=== PATIENT | female | born 1935 | race Caucasian/White ===

== ENCOUNTER 2023-12-03 16:34 | Emergency (ER) | payer OTHER, SELFPAY ==
[2023-12-03] VITALS (9 sets, daily range): BP systolic 106–140; BP diastolic 44–66; PULSE 66–74; BMI 22.4
[2023-12-03 16:51] LABS: % Basophils 0.4 % (0-2); % Eosinophils 1.3 % (0-6); % Immature Granulocytes 0.3 % (0-0.5); % Lymphocytes 28.2 % (20.5-51.1); % Monocytes 9.5 % (1.7-9.3); % Neutrophils 60.3 % (42.2-75.2); Absolute Eosinophils 0.1 10^3/uL (0-0.7); Absolute Monocytes 0.7 10^3/uL (0.1-0.6); Absolute Neutrophils 4.3 10^3/uL (1.4-6.5); Hematocrit 33.5 % (37.0-47.0); Mean Corp Hgb Conc. 32.8 g/dL (33.0-37.0); Mean Corpuscular Hgb 30.8 pg (27.0-31.0); Mean Corpuscular Volume 93.8 fL (81.0-99.0); Mean Platelet Volume 11.6 fL (7.4-10.4); Nucleated Red Blood Cells % 0 %; Platelet Count 203 10^3/uL (130-400); Red Blood Cell Count 3.57 10^6/uL (4.20-5.40); Red Cell Dist. Width 12.5 % (11.5-14.5); White Blood Cell Count 7.1 10^3/uL (4.8-10.8)
[2023-12-03 17:17] LABS: ALT (SGPT) 11 U/L (0-35); AST (SGOT) 26 U/L (14-36); Albumin 4.1 g/dl (3.5-5.0); Alkaline Phosphatase 67 U/L (38-126); Blood Urea Nitrogen 31 mg/dl (7-17); Calcium 9.7 mg/dl (8.4-10.2); Carbon Dioxide 34 mmol/L (22-30); Chloride 99 mmol/L (98-107); Estimated Creatinine Clearance 42 ml/min; Glucose 110 mg/dl (70-99); Potassium 3.6 mmol/L (3.5-5.1); Sodium 137 mmol/L (135-145); Total Bilirubin 0.6 mg/dl (0.2-1.3); eGFR > 60.00
[2023-12-03 17:30] LABS: Troponin I < 0.012 ng/ml
[2023-12-03 18:43] LABS: Urine Albumin Negative (Neg - Trace); Urine Bilirubin Negative (Negative); Urine Character Clear (Clear); Urine Color Yellow; Urine Glucose Negative (Negative); Urine Ketone Negative (Negative); Urine Leukocyte Negative (Negative); Urine Nitrite Negative (Negative); Urine Occult Blood Negative (Negative); Urine Specific Gravity 1.005 (<1.030); Urine Urobilinogen Negative (Neg - 1+)
--- NOTE | 2023-12-03 22:39 | ED.GENMED ---
History of Present Illness
General
Chief Complaint: Fainting Sensation
Source: patient
Exam Limitations: none
Time Seen by Provider: 12/03/23 17:29
Nursing documentation reviewed up to this point in time: agreed with
Travel History
Have you had any contact with someone who has COVID-19?: No
Do you have any symptoms of coronavirus? Fever > 100 degrees, chills, cough, shortness of breath, sore throat, loss of taste or smell, muscle aches, or headache?: No
History of Present Illness
History of Present Illness:
Patient states she was grocery shopping. Had sudden onset of dizziness while checking out. Assisted to floor by another customer. Stes symptoms resolved quickly. Reports having an episode of diarrhea earlier. States she took 3 immodium and 25mg
of meclazine this AM prior to leaving her home. SHe has an infrequent history of vertigo. Brought to ED via EMS for eval. Denies fever/chills, CP SOB. No abdominal pain n/v. Eating and drinking normally. No other complaints.
Past History
Past History
ED Past Medical History: GERD, HTN and Other (Vertigo, osteoporosis)
ED Past Surgical History: Appendectomy and
Patient has exhibited threatening behavior?: No
PSI?: No
Social History
Tobacco: Former smoker (quit in 1980s)
Alcohol: None
Drug: None
Personal:
Living: with family
Employment: Retired (secretary administrative assistant)
Family History
Family History: Other (n/c)
Review of Systems
Review of Systems
Allergies reviewed?: Yes
All Other Systems: ROS reviewed and negative except as documented in HPI and ROS
Constitutional: Reports no symptoms
EENT: Reports no symptoms
Respiratory: Reports no symptoms
Cardiac: Reports no symptoms
ABD/GI: Reports diarrhea (1 episode this AM)
: Reports no symptoms
Musculoskeletal: Reports no symptoms
Skin: Reports no symptoms
Neurological: Reports dizzy
Psychiatric: Reports no symptoms
Phy Exam
General Physical Exam
General Presentation: well appearing and no apparent distress
General age: appears stated age
General Skin: warm and dry
General Habitus: normal
General Mental: alert
Eye Exam
Eye Exam: PERRL, EOMI and conjunctiva normal
Cardiovascular Exam
Cardiovascular Exam: regular rate/rhythm and no edema
Pulmonary Exam
Pulmonary Exam: lungs clear, no respiratory distress and chest non tender
Gastrointestinal Exam
Gastrointestinal Exam: normal bowel sounds, non tender, soft, no organomegaly, no pulsatile mass and non distended
NIH Stroke Score
Level of Consciousness: 0 - Alert
LOC questions: 0-Answers both correctly
LOC Commands: 0-Performs both correctly
Best Gaze: 0-Normal
Visual Nichols: 0=Normal, no visual loss
Facial palsy: 0=Normal, symmetrical
Motor - Right Arm: 0=No drift 10 seconds
Motor - Left Arm: 0=No drift 10 seconds
Motor - Right Le-No drift 5 seconds
Motor - Left Le-No drift 5 seconds
Limb Ataxia: 0-Absent
Sensation: 0-Normal
Best Language: 0-No aphasia
Dysarthria: 0-Normal
Extinction and Inattention: 0-No abnormality
Total Score:: 0
Musculoskeletal Exam
Musculoskeletal Exam: full ROM and neuro vasc intact
Skin Exam
Skin Exam: normal color, warm/dry and no rash
Psychiatric Exam
Psychiatric Exam: normal mood/affect
Course
Orders/Labs/Results
Orders:
Orders
12/03/23 16:41
Electrocardiogram (*1) Urgent
Reason for Study: Syncope
EKG- Treatment ONCE
12/03/23 16:42
Complete Blood Count/With Diff Urgent
Comprehensive Metabolic Panel Urgent
Troponin I Urgent
12/03/23 17:44
CT Head W/o Iv Contrast Urgent
Comment:
Reason For Exam: near syncope
12/03/23 17:54
Urinalysis Reflex To Culture Urgent
Date Specimen was Collected: 12/03/23
Time Specimen was Collected: 17:53
12/03/23 18:58
Orthostatic VS- Treatment ONCE
Abnormal Lab Results
12/03/23
16:42
RBC 3.57 L 10^6/uL
(4.20-5.40)
Hgb 11.0 L g/dL
(12.0-16.0)
Hct 33.5 L %
(37.0-47.0)
MCHC 32.8 L g/dL
(33.0-37.0)
MPV 11.6 H fL
(7.4-10.4)
Absolute Monos (auto) 0.7 H 10^3/uL
(0.1-0.6)
Monocytes % 9.5 H %
(1.7-9.3)
Carbon Dioxide 34 H mmol/L
(22-30)
BUN 31 H mg/dl
(7-17)
Glucose 110 H mg/dl
(70-99)
12/03/23 16:42
12/03/23 16:42
Vital Signs
Initial and Last Documented VS:
Initial Vital Signs
BP
133/62
12/03/23 16:35
Last Documented Vital Signs
Temp Pulse Resp BP Pulse Ox
98.4 F 69 15 120/64 98
12/03/23 16:37 12/03/23 19:56 12/03/23 19:56 12/03/23 19:56 12/03/23 19:54
*Radiology
Radiology exam reviewed: radiology read reviewed
*Pulse Oximetry
Patient hypoxic: no
*Critical Care Note
Total Time (30-74mins, 75-104mins- exclusive of procedures): Not Applicable
Update Note
Update Note:
Patient remains asymptomatic in dept. No further episodes of dizziness. SHe is discharged home and will follow up with PCP in AM. Given instructions on s/s to return to ED and she is agreeable to plan.
ED Attending Note
-
Portions of this chart may have been created with voice recognition software.� Occasional wrong word or��sound alike� substitutions may have occurred due to the inherent limitations of voice recognition software.
Discharge Plan
Departure
Patient Disposition: Home (Routine Discharge)
Date of Disposition: 12/03/23
Time of Disposition: 20:28
Patient with high blood pressure during this ER visit?: No
Condition: Good
Covid-19: Not Applicable
Discharge Problem:
Dizziness
Instructions: Dizziness, Adult ED
Prescriptions:
No Action
Caltrate-D3 Plus Minerals 1 EACH tablet
1 ea PO BID
meclizine 25 MG tablet
25 mg PO Q8HPRN PRN (Reason: vertigo)
bismuth subsalicylate [[place] Bismuth] 1 TABLET tablet,chewable
1 tab PO Q4HPRN PRN (Reason: indigestion)
nadolol 80 mg tablet
80 mg PO DAILY
losartan-hydrochlorothiazide 50-12.5 mg tablet
1 tab PO BID
polyethylene glycol 3350 17 GRAMS powder in packet
17 grams PO DAILYPRN PRN (Reason: constipation)
acetaminophen 325 mg Tablet
650 mg PO Q6H Qty: 20 0RF
tramadol 50 mg Tablet
50 mg PO Q6HPRN PRN (Reason: moderate pain) Qty: 10 0RF
docusate sodium 100 mg Capsule
100 mg PO BID Qty: 0 0RF
sennosides [Senna Laxative] 8.6 mg Tablet
17.2 mg PO BID Qty: 0 0RF
Referrals:
Andreea Barfield CRNP [Family Provider] - Tomorrow
Interventions
Interventions:
*Risk Screen - Suicide Last Done: 12/03/23 16:37
*General Assessment Last Done: 12/03/23 16:37
*Neglect/Abuse Screening Last Done: 12/03/23 16:37
*ED COVID-19 Vaccine History Last Done: 12/03/23 16:37
*Nursing Disposition Last Done: 12/03/23 20:41
ED- Cardiac Assessment Last Done: 12/03/23 17:00
ED- Neurological Assessment Last Done: 12/03/23 17:00
Discharge Date and Time
Discharge Date/Time: 12/03/23 20:50
== END 2023-12-03 20:50 | disposition home or self-care (01) ==
LOC: EMR 16:34
PROVIDERS: Nurse Practitioner; EMERGENCY PHYSICIAN Emergency Medicine; FAMILY PHYSICIAN Nurse Practitioner Adult Health
DX: R42 Dizziness and giddiness (principal); Z87.891 Personal history of nicotine dependence
CPT/HCPCS: 99285; 70450; 80053; 81003; 84484; 85025; 93005

== ENCOUNTER → 2024-03-01 15:54 | Outpatient (REF) | payer OTHER, SELFPAY | LOC: HWRAD 15:54 | PROVIDERS: ATTENDING PHYSICIAN Nurse Practitioner Adult Health | DX: M25.562 Pain in left knee (principal) | CPT/HCPCS: 73564 ==

== ENCOUNTER 2025-06-17 06:34 | Inpatient (IN) | payer OTHER, SELFPAY ==
[2025-06-17] VITALS (8 sets, daily range): BP systolic 111–163; BP diastolic 46–78; BMI 22.3; BMI 21.3
[2025-06-17 01:58] LABS: Hematocrit 37.5 % (37.0-47.0); Hemoglobin 11.8 g/dL (12.0-16.0); Mean Corp Hgb Conc. 31.5 g/dL (33.0-37.0); Mean Corpuscular Volume 95.9 fL (81.0-99.0); Nucleated Red Blood Cells % 0 %; Platelet Count 228 10^3/uL (130-400); Red Cell Dist. Width 12.2 % (11.5-14.5)
[2025-06-17 02:12] LABS: ALT (SGPT) < 10 U/L (0-35); AST (SGOT) 22 U/L (14-36); Albumin 4.5 g/dl (3.5-5.0); Alkaline Phosphatase 61 U/L (38-126); Blood Urea Nitrogen 30 mg/dl (7-17); Calcium 10.7 mg/dl (8.4-10.2); Carbon Dioxide 33 mmol/L (22-30); Chloride 99 mmol/L (98-107); Glucose 116 mg/dl (70-99); Lipase 88 U/L (23-300); Potassium 3.8 mmol/L (3.5-5.1); Sodium 140 mmol/L (135-145); Total Protein 7.9 g/dl (6.3-8.2); eGFR > 60.00
--- NOTE | 2025-06-17 04:01 | ED.GENMED ---
History of Present Illness
General
Chief Complaint: Bowel Problem
Source: patient
Exam Limitations: none
Time Seen by Provider: 06/17/25 04:00
Nursing documentation reviewed up to this point in time: agreed with
History of Present Illness
History of Present Illness:
Note:
CHIEF COMPLAINT(S)
Abdominal pain and constipation.
HISTORY OF PRESENT ILLNESS
The patient is an 89-year-old female with a history of bowel obstruction, presenting with abdominal pain and constipation. She describes the pain as initially severe on arrival but notes it has since reduced in intensity. The patient denies vomiting
but reports occasional nausea. She has not experienced urinary symptoms like pain during urination and denies recent fevers. The patient has a history of occasional bowel obstructions but has not previously sought emergency care specifically for
constipation, such as requiring an enema. She stated not taking Miralax regularly to manage constipation and expressed uncertainty about its use. Abdominal surgery was mentioned, but specifics were not detailed. The patient reports a light but
successful intake of food today. She denies chest pain, shortness of breath.
PAST MEDICAL AND SURGICAL HISTORY
- History of bowel obstruction.
- Prior abdominal surgeries (specifics not detailed).
PHYSICAL EXAM
- Nursing notes reviewed and vital signs reviewed.
General: Patient is well appearing and in no acute distress; non-toxic
Skin: Warm and dry, no rashes or lesions
Head: Normocephalic, atraumatic
Eyes: Sclera non-icteric. EOMs intact.
Cardiac: Regular rate and rhythm, no murmurs
Peripheral Vascular: No lower ext swelling or edema
Pulm: Normal respiratory effort, no wheezes, rales, or rhonchi
Abdomen: Periumbilical abdominal tenderness to palpation
Neuro: CN II-XII intact, no focal neurologic deficits.
Psychiatric: Appropriate mood and affect.
PLAN
1. Obtain a computed tomography scan to evaluate for possible bowel obstruction.
2. Administer IV fluids to address dehydration.
3. Provide medication for nausea.
4. If constipation is identified, consider treatments including manual disimpaction, medication, or enema.
5. Discuss the use of magnesium citrate as a home treatment option for constipation.
DIFFERENTIAL DIAGNOSIS
The Differential Diagnosis includes, in no particular order and is not limited to:
1. Bowel obstruction
2. Severe constipation
3. Gastroenteritis
4. Abdominal adhesions
5. Diverticulitis
6. Irritable bowel syndrome
7. Partial small bowel obstruction
8. Appendicitis
9. Colonic pseudo-obstruction
10. Inflammatory bowel disease
Disposition:
SUMMARY OF ENCOUNTER
An 89-year-old female with a history of multiple bowel obstructions and a partial colectomy presented to the emergency department with abdominal pain and constipation, having not had a bowel movement in one week. The current episode felt similar to
her past bowel obstructions. In the emergency department, labs were reviewed showing no leukocytosis, although a mildly elevated blood urea nitrogen (BUN) to creatinine ratio indicated dehydration, so IV fluids were administered. Liver function
tests and urinalysis were normal. A CT scan revealed findings suggestive of a small bowel obstruction. The general surgery team was alerted, and the patients condition was assessed as requiring hospital admission.
DISPOSITION
Admit.
ASSESSMENT
The presentation and CT scan findings are suggestive of a small bowel obstruction, likely related to her history of bowel surgeries and partial colectomy.
EMERGENCY TREATMENTS ADMINISTERED
Intravenous fluids were administered to address dehydration.
MANAGEMENT OF THE PATIENTS CARE WAS DISCUSSED WITH
General surgery team (on-call), Hospitalist team (patient accepted for admission).
PLAN
The patient requires hospital admission for further management of the suspected small bowel obstruction. The surgical team will evaluate the need for possible intervention.
INDEPENDENT REVIEW OF LABS AND INTERPRETATION OF TESTS
My independent review of labs shows no leukocytosis, a mildly elevated BUN/creatinine ratio indicating dehydration, and normal liver function tests and urinalysis. My independent interpretation of the CT scan indicates findings concerning for a
small bowel obstruction.
MEDICATION RECONCILIATION
Intravenous fluids to address dehydration from elevated BUN/creatinine ratio.
MEDICAL DECISION MAKING
- Number and Complexity of Problems Addressed: Chronic conditions affecting care include the patients history of bowel obstructions and partial colectomy. Differential diagnosis includes bowel obstruction, abdominal adhesions, and partial small
bowel obstruction.
- Data:
Category 1: CT scan independently interpreted, labs including CBC and liver function tests reviewed.
Category 3: Discussion with the general surgery team regarding the management of the suspected bowel obstruction, and the hospitalist for admission planning.
- Risk: The patient presents with risks due to a possible bowel obstruction requiring hospitalization and further surgical evaluation if necessary.
DIAGNOSIS
1. Small bowel obstruction (ICD-10: K56.60)
2. Dehydration (ICD-10: E86.0)
Past History
Past History
ED Past Medical History: GERD, HTN and Other (Vertigo, osteoporosis)
ED Past Surgical History: Appendectomy and
Patient has exhibited threatening behavior?: No
PSI?: No
Social History
Tobacco: Former smoker (quit in 1980s)
Alcohol: None
Drug: None
Personal:
Living: with family
Employment: Retired (admin secretary)
Family History
Family History: Other (n/c)
Phy Exam
Physical Exam
Physical Exam:
see hpi
Course
Orders/Labs/Results
Orders:
Orders
06/17/25 01:40
IV Insert/Care/Rem.- Treatment PRN
Straight cath- Treatment ONCE
06/17/25 01:50
Complete Blood Count/With Diff Urgent
Comprehensive Metabolic Panel Urgent
Lipase Urgent
06/17/25 04:07
Ondansetron Injectable [Zofran] 4 mg IV NOW STA
06/17/25 04:08
CT Abd/pelvis W Iv Cont Urgent
Comment:
Reason For Exam: periumbilical pain
06/17/25 04:09
0.9% Sodium Chloride 500 ml [Nss] 500 ml IV BOLUS
06/17/25 04:34
Urinalysis Reflex To Culture Urgent
Date Specimen was Collected: 06/17/25
Time Specimen was Collected: 01:40
Urine Microscopic Reflex Cult Urgent
06/17/25 Breakfast
NPO
Allow oral meds: Yes
Allow clear liquids: No
NPO with Ice Chips: Yes
06/17/25 06:24
Admit/Transfer Patient As Directed
Co-Sign Provider:
Level of Care: Inpatient admission
Assign to:: Medical/Surgical
Physician / Group: Amie
Diagnosis: small bowel obstruction
Reason for Hospitalization: small bowel obstruction
Expected length of stay greater than two midnights?: Yes
ELOS- Estimated Length of Stay in days: 2
I certify the patient meets the requirements for IP care: Yes
06/17/25 06:25
Code Status As Directed
Resuscitation Status: Full Code
PRN Pain Medication Management As Directed
May give lesser potent ordered pain med per pt: Yes
preference::
Protocol:: Medication orders for pain may be administered in a
manner that supports deferring to patient preference
when the pt is:
- Requesting an ordered lesser potent pain medication.
Least to most potent pain medications are defined
as: acetaminophen < NSAID < tramadol < opioids
(morphine, oxycodone, hydromorphone).
- Requesting a lesser dose of the same medication IF
ORDERED.
- Requesting a less intrusive route of administration
if both routes are prescribed by the provider (PO <
IV).
06/17/25 08:44
Acetaminophen [Tylenol] 650 mg PO Q4HPRN PRN
Dextrose 5%/0.9%Sodchl 1000 ml [D5/0.9% Sodium Chloride] 1,000 ml IV 75 mls/hr
Ketorolac [Toradol] 10 mg IV Q6HPRN PRN
06/17/25 08:44
SURGICAL CONSULT Routine
Consulting Provider: Demian Arnold
Was physician already notified: Yes
Activity As Directed
Activity Level: With Assistance
Vital Signs As Directed
Frequency: Per unit guidelines
Pulse Ox/spot Check [RESP] Routine
Quantity: 1
DX Deep Vein Thrombosis Video Routine
06/17/25 09:15
Nadolol [Corgard] 80 mg PO DAILY
06/17/25 10:00
Ondansetron Injectable [Zofran] 4 mg IV Q6HPRN PRN
06/17/25 18:00
Enoxaparin Sodium [Lovenox] 40 mg SC QPM
Abnormal Lab Results
06/17/25 06/17/25
01:50 04:34
RBC 3.91 L 10^6/uL
(4.20-5.40)
Hgb 11.8 L g/dL
(12.0-16.0)
MCHC 31.5 L g/dL
(33.0-37.0)
MPV 11.4 H fL
(7.4-10.4)
Absolute Neuts (auto) 7.1 H 10^3/uL
(1.4-6.5)
Absolute Monos (auto) 0.9 H 10^3/uL
(0.1-0.6)
Carbon Dioxide 33 H mmol/L
(22-30)
BUN 30 H mg/dl
(7-17)
Glucose 116 H mg/dl
(70-99)
Calcium 10.7 H mg/dl
(8.4-10.2)
Ur Occult Blood Reflex 1+ A
(Negative)
06/17/25 01:50
06/17/25 01:50
Vital Signs
Initial and Last Documented VS:
Initial Vital Signs
Temp Pulse Resp BP Pulse Ox
98.7 F 61 20 147/70 97
06/17/25 01:33 06/17/25 01:33 06/17/25 01:33 06/17/25 01:33 06/17/25 01:33
Last Documented Vital Signs
Temp Pulse Resp BP Pulse Ox
98.0 F 59 18 163/62 92
06/17/25 08:51 06/17/25 08:51 06/17/25 08:51 06/17/25 08:51 06/17/25 08:51
*Pulse Oximetry
SaO2: 98
Oxygen Mode of Delivery: Room air
Patient hypoxic: no
*Critical Care Note
Total Time (30-74mins, 75-104mins- exclusive of procedures): Not Applicable
ED Attending Note
-
Portions of this chart may have been created with voice recognition software.� Occasional wrong word or��sound alike� substitutions may have occurred due to the inherent limitations of voice recognition software.
Discharge Plan
Departure
Patient Disposition: Admit
Date of Disposition: 06/17/25
Time of Disposition: 06:06
Presentation/result/management discussed w/ accepting MD/DO: Hospitalist
Condition: Fair
Discharge Problem:
Small bowel obstruction
Interventions
Interventions:
*Risk Screen - Suicide Last Done: 06/17/25 01:33
*General Assessment Last Done: 06/17/25 01:33
*Neglect/Abuse Screening Last Done: 06/17/25 01:33
*ED- Fall Risk Assessment Last Done: 06/17/25 01:33
*ED COVID-19 Vaccine History Last Done: 06/17/25 08:54
*Nursing Disposition Last Done: 06/17/25 08:10
OO-Xhclky-Bfcjukzqlm Assessment Last Done: 06/17/25 02:40
Discharge Date and Time
Discharge Date/Time: 06/17/25 08:47
[2025-06-17] MEDS: ZOFRAN 4 MG IV (04:16)
[2025-06-17] MEDS: NSS 500 IV (04:35)
[2025-06-17 04:56] LABS: Urine Character Clear (Clear)
[2025-06-17 05:03] LABS: Urine Squamous Cell >30 /LPF (Few)
[2025-06-17 05:04] LABS: Urine Red Blood Cell 0-2 /HPF (0-2); Urine White Cell 0-2 /HPF (0-5)
--- NOTE | 2025-06-17 06:28 | HPS.HSE ---
Family Physician
-
Family Physician: Andreea Barfield
Chief Complaint
-
Abdominal discomfort
History of Present Illness
This is a 89-year-old with past medical history of hypertension, MDS,-of multiple intra-abdominal surgeries and history of multiple episodes of small bowel obstruction on which has required surgical interventions in the past presenting to the
emergency department with worsening constipation and abdominal pain over the last 2 days.
Patient reported that she has been doing well recently for several years in terms of her abdominal issues. However over the last 1 week she has been having increasing discomfort with food intake and constipation. She last had bowel movement a few
days ago. She states that over the last 2 days she has had no bowel movement at all and that she has been having nausea. She did pass some gas. She did not vomit. She started getting abdominal pain today which was reminiscent of her prior
episodes of SBO. She reported this to her son and requested to go to the emergency department. She denies having any fevers or chills. She denies any indigestion. She denies any new medications.
In the emergency department she was afebrile, blood pressure 150/70 with pulse of 67 satting 98% on room air.
She has a white count of 10.4 otherwise normal hemoglobin and platelets. Her electrolytes are notable for a bicarb of 33 but otherwise unremarkable. BUN was 30 with a creatinine of 0.9 close of 116. She had a CT of the abdomen pelvis showing
dilated loops of small bowel and mildly distended stomach. No obvious transition point. No bowel ischemia noted.
Medical History
Past Medical History
Past Medical History: Reports Other
Additional Past Medical History:
Hypertension
GERD
Vertigo
Recurrent SBO
MGUS
Osteoporosis
Past Surgical History: Reports Other
Additional Past Surgical History:
Multiple Ex Lap for SBO Repair (4 total)
Appendectomy
Oophorectomy
T&A
Social History
Tobacco: Former Smoker (Quit in 1970s)
Alcohol: Occasional
Drug: None
Family History
Family History: Not pertinent
Allergies / Home Medications
Allergies reflects when Allergies were last updated in [facility].
Home Medications with original date entered in [facility]
Allergy/Medication List:
Allergies
Allergy/AdvReac Type Severity Reaction Status Date / Time
No Known Allergies Allergy Verified 05/02/23 21:39
Home Medications
bismuth subsalicylate 262 mg chewable tablet ([place] Bismuth) 1 tab PO Q4HPRN PRN indigestion 07/10/19
calcium carb 300 mg-D3 800 unit-mag ox 25 mg-helicopter mechanic 0.5 mg-dionna-Zn tablet (Caltrate + D3 Plus Minerals) 1 ea PO BID Supplement 07/10/19
meclizine 25 mg tablet 25 mg PO Q8HPRN PRN vertigo 07/10/19
acetaminophen 325 mg tablet 650 mg PO Q4HPRN PRN mild pain or temp > 100.4 F 07/14/19
losartan 50 mg-hydrochlorothiazide 12.5 mg tablet 1 tab PO BID Blood pressure 03/25/23
nadolol 80 mg tablet 80 mg PO DAILY Blood pressure 03/25/23
polyethylene glycol 3350 17 gram oral powder packet 17 grams PO DAILYPRN PRN constipation 03/25/23
Review of Systems
-
Constitutional: Reports No Symptoms
EENT: Reports No Symptoms
Respiratory: Reports No Symptoms
Cardiac: Reports No Symptoms
Abdomen/GI: Reports Abdominal Pain, Nausea and Constipated
: Reports No Symptoms
Musculoskeletal: Reports No Symptoms
Skin: Reports No Symptoms
Neurological: Reports No Symptoms
Endocrine: Reports No Symptoms
Hematologic/Lymphatic: Reports No Symptoms
Psych: Reports No Symptoms
Physical Exam
Vital Signs
Vital Signs
Temp Pulse Resp BP Pulse Ox
98.7 F 67 15 148/73 98
06/17/25 01:33 06/17/25 03:00 06/17/25 03:00 06/17/25 03:00 06/17/25 04:03
Physical Exam
General: Well Developed, Well Nourished and No Apparent Distress
HEENT: NormoCephalic, Moist mucous membranes and Atraumatic
Respiratory: Clear
Cardiac: S1/S2 and Regular Rhythm; No Murmur or Rub
GI: Soft (slightly firm), Non Distended, Normal Bowel Sounds and Tender; No Organomegaly
Rectal: Deferred by Provider
Musculoskeletal: No Clubbing, No Cyanosis and No Edema
Skin: No Rash
Neuro: Nonfocal/grossly intact
Laboratory Results
-
06/17/25 01:50
06/17/25 01:50
Laboratory Results
Total Bilirubin 0.4 mg/dl (0.2-1.3) 06/17/25 01:50
AST 22 U/L (14-36) 06/17/25 01:50
ALT < 10 U/L (0-35) 06/17/25 01:50
Alkaline Phosphatase 61 U/L (38-126) 06/17/25 01:50
Lipase 88 U/L (23-300) 06/17/25 01:50
Data Reviewed
-
CT Scan: Report Reviewed by me
Lab Data: Labs Reviewed by me
Old Records: Reviewed
Impression/Plan
-
IMPRESSION:
89-year-old female with past medical history of multiple intra-abdominal surgeries complicated by multiple episode of small bowel obstruction known to surgery here and has required surgical interventions in the past presents to the emergency
department with more recent episodes of abdominal pain and constipation which she feels is reminiscent of last episode of SBO. In the emergency department she was found to have SBO on CT scan without a transition point. Labs are quite stable. She
currently states that she is feeling better with significant reduction in abdominal pain. She now reports only an ache. She denies having nausea or vomiting currently. Her labs are stable except for some elevated bicarb which is suggestive of
contraction alkalosis with some dehydration.
PLAN:
SBO -possibly early SBO, no transition point noted, currently without vomiting and pain is markedly improved
-Admit to MedSurg
-N.p.o. for now except oral meds and ice chips
-Maintenance fluids
-Pain control and antiemetics
-NG tube if patient has uncontrolled vomiting or pain
-Requested surgical consultation
DVT prophylaxis�Lovenox subcu
CODE STATUS�DNR
--- NOTE | 2025-06-17 07:16 | EDRN ---
medication reconciliation performed by this RN with the pt
--- NOTE | 2025-06-17 07:18 | W.PN.HOSP.TC ---
Today's Communication/Plan
-
See plan
Assessment / Plan
Assessment / Plan
Physical Exam
General: Well Developed, Well Nourished and No Apparent Distress
HEENT: Normocephalic, Moist mucous membranes and Atraumatic
Respiratory: Clear to Auscultation Bilaterally
Cardiac: S1/S2 and Regular Rhythm
GI: Soft, Distended and Tender. Positive bowel sounds.
Musculoskeletal: No Cyanosis and No Edema
Skin: Warm. Dry.
Neuro: AAOx3. Nonfocal/grossly intact
Assessment/Plan
89-year-old female with past medical history of multiple intra-abdominal surgeries complicated by multiple episodes of small bowel obstruction known to surgery here and has required surgical interventions in the past presented to the emergency
department with more recent episodes of abdominal pain and constipation which she felt was reminiscent of last episode of SBO. In the emergency department she was found to have SBO on CT scan without a transition point. Her abdominal pain improved.
Her labs are stable except for some elevated bicarb which is suggestive of contraction alkalosis with some dehydration.
SBO
History of SBO
s/p
s/p unilateral oophorectomy
s/p appendectomy c/b recurrent adhesive SBO's s/p ex lap x 4 and SBR x 2 (all at outside hospitals)
-N.p.o.
-Maintenance fluids
-Pain control and antiemetics -- but minimize narcotics
-NG tube if patient has uncontrolled vomiting or pain
-UGI if no clinical improvement by 06/18/25
-OOB/ambulate, correct electrolytes
-Requested surgical consultation
GERD -- stable
HTN -- blood pressure is stable currently, can do as needed IV meds if needed
Osteoporosis
Chronic back pain -- pain controlled at this time
DVT Prophylaxis�Lovenox subcu
CODE STATUS�DNR
Anticipated Discharge: 24 - 48 hours
Subjective/Interval History
-
Date of Service: June 17, 2025
Patient was seen and examined. She denied any nausea, vomiting, and she also denied any flatulence or bowel movements.
Objective Data
-
Labs:
Laboratory Results
06/17/25
01:50
WBC 10.4
Hgb 11.8 L
Hct 37.5
Plt Count 228
Sodium 140
Potassium 3.8
Chloride 99
Carbon Dioxide 33 H
BUN 30 H
Creatinine 0.9
Glucose 116 H
Calcium 10.7 H
Total Bilirubin 0.4
AST 22
ALT < 10
Alkaline Phosphatase 61
Vital Signs:
Vital Signs
Temp Pulse Resp BP Pulse Ox
98.7 F 67 15 148/73 98
06/17/25 01:33 06/17/25 03:00 06/17/25 03:00 06/17/25 03:00 06/17/25 04:03
--- NOTE | 2025-06-17 08:25 | EDRN ---
this RN called the receiving unit and notified them that paper report was going to be tubed up
--- NOTE | 2025-06-17 09:30 | CON.GS ---
Medical History
-
Chief Complaint: Abdominal pain and nausea
History of Present Illness:
Patient is an 89 yo F with a PMH of GERD, HTN, osteoporosis chronic back pain, s/p , s/p unilateral oophorectomy, and s/p appendectomy c/b recurrent adhesive SBO's s/p ex lap x 4 and SBR x 2 (all at outside hospitals) who presents with
abdominal discomfort and nausea. Ms. Vyas states that over the past week she has had increasing abdominal discomfort particularly with oral intake. No clear dietary indiscretion. Over the past 24 to 48 hours she has had issues with nausea
prompting presentation to the ER. Her last bowel movement was days ago. She last passed flatus approximate 24 to 48 hours ago. Currently she states that she is mildly improved. No episodes of vomiting. Denies any current nausea. No fevers. Of
note, her most recent episode was back in 2022 here at and managed medically.
Past Medical History
Past Medical History: GERD, HTN and Other (Osteoporosis and back pain)
Past Surgical History: Appendectomy, Bowel Resection, , Gynecological (Unilateral oophorectomy) and Other (Exploratory laparotomy x 4 with SBR)
Social History
Tobacco: Former Smoker
Alcohol: Occasional
Drug: None
Family History
Family History: Reviewed & Not Pertinent
Allergies / Home Medications
Allergy/AdvReac Type Severity Reaction Status Date / Time
No Known Allergies Allergy Verified 05/02/23 21:39
�Medication �Instructions �Recorded �Confirmed �Type
losartan 50 mg-hydrochlorothiazide 1 tab PO BID Blood pressure 03/25/23 06/17/25 History
12.5 mg tablet
nadolol 80 mg tablet 80 mg PO DAILY Blood pressure 03/25/23 06/17/25 History
acetaminophen 325 mg tablet 650 mg PO Q6HPRN PRN back pains 06/17/25 06/17/25 History
(Tylenol)
temazepam 7.5 mg capsule 7.5 mg PO HSPRN PRN sleep 06/17/25 06/17/25 History
Review of Systems
-
A 10 point review of systems was completed, and was negative except as per HPI.
Physical Exam
Vital Signs
Temp Pulse Resp BP Pulse Ox
98.0 F 59 18 163/62 92
06/17/25 08:51 06/17/25 08:51 06/17/25 08:51 06/17/25 08:51 06/17/25 08:51
06/16/25 06/17/25 06/18/25
06:59 06:59 06:59
Actual Weight 57.2 kg 54.522 kg
Body Mass Index (BMI) 21.3
Lab Results
06/17/25 01:50
06/17/25 01:50
WBC 10.4 10^3/uL (4.8-10.8) 06/17/25 01:50
Hgb 11.8 g/dL (12.0-16.0) L 06/17/25 01:50
Hct 37.5 % (37.0-47.0) 06/17/25 01:50
Plt Count 228 10^3/uL (130-400) 06/17/25 01:50
Abs Immat Gran (auto) 0.0 10^3/uL (0-0.05) 06/17/25 01:50
Neutrophils % 67.7 % (42.2-75.2) 06/17/25 01:50
Physical Exam
General: Well Developed, Well Nourished and No Apparent Distress
HEENT: Normocephalic and Anicteric
Respiratory: Non Labored Respirations
Cardiac: Regular Rhythm
GI: Soft, Tender (Mild diffusely), Distended (Mild), Incisions (Multiple prior midline and paramidline incisions well-healed) and Other (Nonperitoneal (no rebound or guarding))
Musculoskeletal: No Edema
Skin: Warm and Dry
Neuro: Nonfocal/Grossly Intact
Data Reviewed
-
CT Scan: Image Personally Visualized and interpreted and Report Reviewed by me
Labs: Labs Reviewed by me
Old Records: Reviewed
Assessment / Plan
-
Patient is an 89 yo F p/w adhesive SBO
Patient well versed on the natural history and pathophysiology of adhesive small bowel obstructions. No clinical or radiographic evidence concerning for bowel ischemia or compromise. Currently clinically improved with no nausea or vomiting. Okay
to hold off on NGT decompression at this time. Would monitor clinically over the next 12 to 24 hours. If no clinical improvement with passage of flatus or bowel movement would proceed with a contrasted study (UGI) tomorrow. All questions answered.
-- No plans for surgery at this time, medical management with bowel rest and IV fluids, NGT if further issues with abdominal pain or nausea
-- UGI if no clinical improvement by tomorrow
-- OOB/ambulate, correct electrolytes, minimize narcotics
[2025-06-17] MEDS: TYLENOL 650 MG PO ×2 (09:36→19:16)
[2025-06-17] MEDS: D5/0.9% SODIUM CHLORIDE 1000 IV ×2 (09:36→22:18)
[2025-06-17] MEDS: CORGARD 80 MG PO (09:37)
--- NOTE | 2025-06-17 12:53 | CM ---
CM reviewed chart, patient seen bedside, initial assessment completed. Patient resides with her son and grandson in a three level home, bedroom on second floor, full flight to second floor, four steps to enter home. Patient denies use of DME, VN/SNF
history. Patient confirms PCP Andreea Barfield, pharmacy [facility] [address], confirms prescription coverage. Patient denies insecurities at home. CM will continue to follow for all discharge planning needs.
Plan; home with family
[2025-06-17] MEDS: LOVENOX 40 MG SC (17:58)
[2025-06-17] MEDS: MELATONIN 3 MG PO (21:55)
[2025-06-18 07:00] VITALS: BP 126/55
[2025-06-18 08:30] LABS: Hematocrit 32.4 % (37.0-47.0); Hemoglobin 10.1 g/dL (12.0-16.0); Mean Corp Hgb Conc. 31.2 g/dL (33.0-37.0); Mean Corpuscular Volume 98.2 fL (81.0-99.0); Platelet Count 174 10^3/uL (130-400); Red Cell Dist. Width 12.3 % (11.5-14.5)
[2025-06-18] MEDS: CORGARD 80 MG PO (08:43)
[2025-06-18 08:47] LABS: Blood Urea Nitrogen 14 mg/dl (7-17); Calcium 9.1 mg/dl (8.4-10.2); Carbon Dioxide 31 mmol/L (22-30); Chloride 106 mmol/L (98-107); Estimated Creatinine Clearance 54 ml/min; Glucose 106 mg/dl (70-99); Magnesium 1.5 mg/dl (1.6-2.3); Potassium 3.3 mmol/L (3.5-5.1); Sodium 139 mmol/L (135-145); eGFR > 60.00
--- NOTE | 2025-06-18 10:09 | W.PN.GS2 ---
Today's Communication / Plan
-
Small bowel follow-through
Assessment / Plan
-
This is an 89-year-old female with history of , unilateral oophorectomy, appendectomy and recurrent adhesive small bowel obstruction status post exploratory laparotomy x 4 and SBR x 2 all at outside hospitals who presents with a recurrent
small bowel obstruction (previous episode was in 2022, managed here nonoperatively). No return of bowel function but no nausea or vomiting either, exam is reassuring.
Continue nonoperative management of her small bowel obstruction.
N.p.o., IV fluids. Can place NG tube if further abdominal pain or nausea.
Will plan for a small bowel follow-through today which can be both therapeutic and diagnostic.
Patient agreeable to plan of care above, general surgery will continue to follow.
Time Spent
Total Time Spent with Patient (in minutes): 25
Subjective Data
-
Date of Service: June 18, 2025
Interval Events:
No acute events overnight. Slept well. Pain Controlled. Denies Nausea/Vomiting, +bowel function. Tolerating diet.
Objective Data
-
Intake and Output
06/17/25 06/18/25 06/19/25
06:59 06:59 06:59
Intake Total 675 / 675
Balance 675 / 675
Intake:
IV fluids (Total) 675 / 675
Other:
Number of approximated MODERATE 2 4
amounts of urine
Vital Signs
Temp Pulse Resp BP Pulse Ox
98.6 F 78 16 126/55 97
06/18/25 07:00 06/18/25 07:00 06/18/25 07:00 06/18/25 07:00 06/18/25 07:00
Lab Results
06/18/25 07:48
06/18/25 07:48
Calcium 9.1 mg/dl (8.4-10.2) D 06/18/25 07:48
Magnesium 1.5 mg/dl (1.6-2.3) L 06/18/25 07:48
Total Bilirubin 0.4 mg/dl (0.2-1.3) 06/17/25 01:50
AST 22 U/L (14-36) 06/17/25 01:50
ALT < 10 U/L (0-35) 06/17/25 01:50
Alkaline Phosphatase 61 U/L (38-126) 06/17/25 01:50
Total Protein 7.9 g/dl (6.3-8.2) 06/17/25 01:50
Albumin 4.5 g/dl (3.5-5.0) 06/17/25 01:50
Physical Exam
-
GENERAL/NEURO: Awake, Alert, no distress
CHEST: Unlabored breathing on RA
ABDOMEN: Soft, Non-Tender, distended
Patient has a pino catheter: No
Patient has a central line: No
[2025-06-18] MEDS: D5/0.9% SODIUM CHLORIDE 1000 IV (11:52)
[2025-06-18] MEDS: TYLENOL 650 MG PO (12:34)
[2025-06-18 15:00] VITALS: BP 150/61
[2025-06-18] MEDS: TORADOL 10 MG IV (15:00)
[2025-06-18] MEDS: ZOFRAN 4 MG IV (15:00)
--- NOTE | 2025-06-18 16:00 | W.PN.HOSP.TC ---
Today's Communication/Plan
-
f/u on SBFT
diet per GS
Assessment / Plan
Assessment / Plan
89-year-old female with past medical history of multiple intra-abdominal surgeries complicated by multiple episodes of small bowel obstruction known to surgery here and has required surgical interventions in the past presented to the emergency
department with more recent episodes of abdominal pain and constipation which she felt was reminiscent of last episode of SBO. In the emergency department she was found to have SBO on CT scan without a transition point. Her abdominal pain improved.
Her labs are stable except for some elevated bicarb which is suggestive of contraction alkalosis with some dehydration.
SBO
History of SBO
s/p
s/p unilateral oophorectomy
s/p appendectomy c/b recurrent adhesive SBO's s/p ex lap x 4 and SBR x 2 (all at outside hospitals)
-Underwent small bowel follow-through study, results pending
-Patient not having any significant nausea vomiting, will require NG tube if started
-Able to pass small amount of stool in morning.
- Diet advancement per general surgery currently on clear liquid diet
GERD -- stable
HTN -- blood pressure is stable currently, can do as needed IV meds if needed
Osteoporosis
Chronic back pain -- pain controlled at this time
DVT Prophylaxis�Lovenox subcu
CODE STATUS�DNR
Anticipated Discharge: Within 24 hours
Subjective/Interval History
-
Date of Service: June 18, 2025
Denies of any problems overnight
no abd pain/nausea/vomiting
Objective Data
-
Labs:
Laboratory Results
06/18/25
07:48
WBC 6.9
Hgb 10.1 L
Hct 32.4 L
Plt Count 174 D
Sodium 139
Potassium 3.3 L
Chloride 106
Carbon Dioxide 31 H
BUN 14
Creatinine 0.6
Glucose 106 H
Calcium 9.1 D
Vital Signs:
Vital Signs
Temp Pulse Resp BP Pulse Ox
98.6 F 78 16 126/55 97
06/18/25 07:00 06/18/25 07:00 06/18/25 07:00 06/18/25 07:00 06/18/25 07:00
I&O
06/17/25 06/18/25 06/19/25
06:59 06:59 06:59
Intake Total 675 / 675
Balance 675 / 675
Review of Systems
-
Respiratory: Reports No Symptoms
Cardiac: Reports No Symptoms
Abdomen/GI: Reports No Symptoms
Physical Exam
-
General: No Apparent Distress
HEENT: Oxygen
Respiratory: Clear to Auscultation
Cardiac: Regular Rhythm and S1/S2; Negative Murmur
GI: Soft, Nontender and Normal Bowel Sounds
Musculoskeletal: No Edema
Neuro: Awake, Alert, Oriented and No Motor Deficits
[2025-06-18] MEDS: LOVENOX 40 MG SC (17:24)
[2025-06-18] MEDS: MELATONIN 3 MG PO (21:14)
[2025-06-18 23:53] VITALS: BP 156/77
[2025-06-19] MEDS: MELATONIN 3 MG PO (01:00)
[2025-06-19 06:26] LABS: Hematocrit 31.4 % (37.0-47.0); Hemoglobin 9.7 g/dL (12.0-16.0); Mean Corp Hgb Conc. 30.9 g/dL (33.0-37.0); Mean Corpuscular Volume 98.1 fL (81.0-99.0); Platelet Count 165 10^3/uL (130-400); Red Cell Dist. Width 12.3 % (11.5-14.5)
[2025-06-19 07:00] VITALS: BP 112/47
[2025-06-19 07:28] LABS: Blood Urea Nitrogen 20 mg/dl (7-17); Calcium 9.8 mg/dl (8.4-10.2); Carbon Dioxide 29 mmol/L (22-30); Chloride 110 mmol/L (98-107); Estimated Creatinine Clearance 40 ml/min; Glucose 80 mg/dl (70-99); Potassium 3.5 mmol/L (3.5-5.1); Sodium 144 mmol/L (135-145); eGFR > 60.00
[2025-06-19] MEDS: CORGARD 80 MG PO (09:12)
--- NOTE | 2025-06-19 10:20 | W.PN.GS2 ---
Today's Communication / Plan
-
`
Assessment / Plan
-
Assessment: 89-year-old female with history of , unilateral oophorectomy, appendectomy and recurrent adhesive small bowel obstruction status post exploratory laparotomy x 4 and SBR x 2 all at outside hospitals who presents with a recurrent
small bowel obstruction (previous episode was in 2022, managed here nonoperatively).
Clinically resolving SBO with return of GI function
Small bowel follow-through study results reviewed. Transit time only 45 minutes. Radiologist report suggestive of underlying partial SBO but this appears to be low-grade and or asymptomatic at this point
Patient confirms desire to manage nonoperatively which is recommended based on relief of her presenting obstructive symptoms
Plan: Low residue diet
stable for discharge from surgical standpoint
Dietary counseling provided
Subjective Data
-
Date of Service: June 19, 2025
Patient seen and examined.
States that she is feeling back to baseline.
Denies abdominal pain or distention.
Tolerating clear liquid diet well.
Passing flatus and had numerous bowel movements following small bowel follow-through study yesterday without return of obstructive symptoms
Objective Data
-
Intake and Output
06/18/25 06/19/25 06/20/25
06:59 06:59 06:59
Intake Total 675 / 675 1440 / 1440
Balance 675 / 675 1440 / 1440
Intake:
Oral fluids 1440 / 1440
IV fluids (Total) 675 / 675
Other:
Number of approximated MODERATE 2 1
amounts of urine
Number of unmeasured liquid
stools
Rectum 6
Vital Signs
Temp Pulse Resp BP Pulse Ox
98.3 F 63 16 112/47 95
06/19/25 07:00 06/19/25 07:00 06/19/25 07:00 06/19/25 07:00 06/19/25 07:00
Lab Results
06/19/25 05:37
06/19/25 05:37
Calcium 9.8 mg/dl (8.4-10.2) 06/19/25 05:37
Magnesium 1.5 mg/dl (1.6-2.3) L 06/18/25 07:48
Total Bilirubin 0.4 mg/dl (0.2-1.3) 06/17/25 01:50
AST 22 U/L (14-36) 06/17/25 01:50
ALT < 10 U/L (0-35) 06/17/25 01:50
Alkaline Phosphatase 61 U/L (38-126) 06/17/25 01:50
Total Protein 7.9 g/dl (6.3-8.2) 06/17/25 01:50
Albumin 4.5 g/dl (3.5-5.0) 06/17/25 01:50
Physical Exam
-
NAD AAO x 3
ABD: Soft, nondistended, nontender on palpation
--- NOTE | 2025-06-19 11:17 | CM ---
CM reviewed chart, patient seen bedside, for discharge today. IMM verbally reviewed with patient, provided with copy, placed in chart. Patient denies VN needs upon discharge, confirms transportation home from sister or son. CM will continue to
follow for all discharge planning needs.
Plan; home no needs.
--- NOTE | 2025-06-19 12:38 | W.PN.HOSP.TC ---
Today's Communication/Plan
-
d/c home
Assessment / Plan
Assessment / Plan
SBFT
1. PARTIAL SMALL BOWEL OBSTRUCTION with a transition point in the right lower quadrant of the abdomen (probably an obstructing adhesive band or a stricture at the site of a small bowel anastomosis). Severe distention of mid abdominal small bowel
loops and collapsed distal ileal loops which appears increased compared with the CT examination performed 05/03/2023.
2. Small hiatal hernia.
3. 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

SBO
History of SBO
s/p
s/p unilateral oophorectomy
s/p appendectomy c/b recurrent adhesive SBO's s/p ex lap x 4 and SBR x 2 (all at outside hospitals)
-Patient not having any significant nausea vomiting, will require NG tube if started
-SBFT finding as above.
-Diet advanced to LR diet.
-GS cleared for discharge.
GERD -- stable
HTN -- blood pressure is stable currently, can do as needed IV meds if needed
Osteoporosis
Chronic back pain -- pain controlled at this time
DVT Prophylaxis�Lovenox subcu
CODE STATUS�DNR
More than 30 minutes spent in discharge including
Final examination of the patient
Summarizing hospital stay
Instructions for continuing care to all relevant caregivers
Preparation of discharge records, prescriptions, and referral forms
Total time spent (in minutes): 37 mins
Anticipated Discharge: Today
Subjective/Interval History
-
Date of Service: June 19, 2025
no issues overnight
no abd pain/nausea/vomiting
Objective Data
-
Labs:
Laboratory Results
06/19/25
05:37
WBC 5.5
Hgb 9.7 L
Hct 31.4 L
Plt Count 165
Sodium 144
Potassium 3.5
Chloride 110 H
Carbon Dioxide 29
BUN 20 H
Creatinine 0.8
Glucose 80
Calcium 9.8
Vital Signs:
Vital Signs
Temp Pulse Resp BP Pulse Ox
98.3 F 63 16 112/47 95
06/19/25 07:00 06/19/25 07:00 06/19/25 07:00 06/19/25 07:00 06/19/25 07:00
I&O
06/18/25 06/19/25 06/20/25
06:59 06:59 06:59
Intake Total 675 / 675 1440 / 1440
Balance 675 / 675 1440 / 1440
Review of Systems
-
Respiratory: Reports No Symptoms
Cardiac: Reports No Symptoms
Abdomen/GI: Reports No Symptoms
Physical Exam
-
General: No Apparent Distress
HEENT: Oxygen
Respiratory: Clear to Auscultation
Cardiac: Regular Rhythm and S1/S2; Negative Murmur
GI: Soft, Nontender and Normal Bowel Sounds
Musculoskeletal: No Edema
Neuro: Awake, Alert, Oriented and No Motor Deficits
--- NOTE | 2025-06-20 08:51 | W.DCSUMMARY ---
Discharge Summary
Discharge Data
Date of Admission: 06/17/25
Date of Discharge: 06/19/25
-
Pending Results: No
Hospital Course
Discharging Physician : Dr Jean Patino
Disposition : To home
Primary care physician : Dr Andreea Barfield
Principal Discharge diagnosis :
Recurrent small bowel obstruction
Chronic Discharge diagnosis :
History of small bowel obstruction
History of section
History of unilateral oophorectomy
History of appendectomy
Gastroesophageal reflux disease
Essential hypertension
Osteoporosis
Chronic back pain
Hospital Course :
Patient is a 89-year-old female with admission past medical history came to ER with new onset of abdominal pain and obstipation. Patient has a history of recurrent small bowel obstruction for many years and has a history of abdominal
surgeries/bowel resection in the past. Patient was diagnosed to possibly having recurrence of small bowel obstruction based on clinical exam and imaging finding. Patient was started on bowel rest and IV hydration. General surgery was involved in
care. Patient had a follow-up small bowel follow-through study which showed a portion of small bowel obstruction with a transition point in the right lower quadrant abdomen although patient started to pass gas/stool spontaneously. Patient was
deemed a poor candidate of repeat surgery and general surgery recommended continue all of conservative management. Patient diet was slowly advanced and was able to tolerate solid food before discharge.
Important imaging findings :
None
Procedure findings :
None
Discharge Plan
-
Patient Disposition: Home (Routine Discharge)
Discharge Diagnosis/Procedures: Recurrent SBO
Condition: Fair
Diet: Other diet
Additional Diets: Low residue diet
Activity: As tolerated
Driving Restrictions: As prior to admission
Bathing Restrictions: OK to Shower
Referrals:
Andreea Barfield CRNP [Family Provider, General] - in one week
Prescriptions:
Continued
nadolol 80 mg tablet
80 mg PO DAILY
losartan-hydrochlorothiazide 50-12.5 mg tablet
1 tab PO BID
acetaminophen [Tylenol] 325 mg Tablet
650 mg PO Q6HPRN PRN (Reason: back pains)
temazepam 7.5 mg Capsule
7.5 mg PO HSPRN PRN (Reason: sleep)
Discharge Orders:
Discharge Patient (As Directed); Ordered 06/19/25
Ordered By: Jean Patino
Discharge Date and Time
Discharge Date/Time: 06/19/25 15:41
Print Language: BRITISH
== END 2025-06-19 15:41 | disposition home or self-care (01) | DRG 389 ==
LOC: 4 WEST ACU 06:34
PROVIDERS: Hospitalist; ADMITTING PHYSICIAN Internal Medicine; ATTENDING PHYSICIAN Hospitalist; CONSULT PHYSICIAN Surgery; EMERGENCY PHYSICIAN Emergency Medicine; FAMILY PHYSICIAN Nurse Practitioner Adult Health
DX: K56.51 Intestinal adhesions [bands], with partial obstruction (principal); E87.3 Alkalosis; E86.0 Dehydration; I10 Essential (primary) hypertension; K21.9 Gastro-esophageal reflux disease without esophagitis; G89.29 Other chronic pain; M81.0 Age-related osteoporosis without current pathological fracture; D47.2 Monoclonal gammopathy; Z66 Do not resuscitate; Z90.49 Acquired absence of other specified parts of digestive tract; Z90.721 Acquired absence of ovaries, unilateral; Z87.891 Personal history of nicotine dependence
CPT/HCPCS: 74177; 74250; 80048; 80053; 81003; 81015; 83690; 83735; 85025; 85027; 96374; 99284; Q9967